=== PATIENT | female | born 1980 | race African-American/Black ===

== ENCOUNTER 2020-10-14 18:30 | Emergency (ER) | payer BC ==
[~2020-10-14] VITALS: Ht 154.9 cm; Wt 83.9 kg
--- NOTE | 2020-10-14 18:41 | NUR ---
at bedside for assessment
[2020-10-14 18:54] LABS: *BILIRUBIN,URIN NEGATIVE (NEGATIVE); *CLARITY,URINE CLEAR (CLEAR); *COLOR,URINE YELLOW (YELLOW); *KETONES,URINE 1+ (NEGATIVE); *UROBILINOGEN,URINE 0.2 E.U./dl (NORMAL); LEUKOCYTE ESTERASE ,URINE NEGATIVE (NEGATIVE); NITRITE, URINE NEGATIVE (NEGATIVE); PH,URINE 5.5 (5.0-8.0); UGLUCOSE NEGATIVE (NEGATIVE)
[2020-10-14 18:55] LABS: *BLOOD, URINE TRACE LYSED (NEGATIVE)
[2020-10-14 18:56] LABS: *URINE HCG, QUAL NEGATIVE (NEGATIVE)
--- NOTE | 2020-10-14 19:06 | NUR ---
Blood drawn and sent to lab at this time
[2020-10-14 19:09] LABS: BACTERIA,URINE FEW /HPF (NONE SEEN); SQUAMOUS EPITHELIAL CELL,UR FEW /HPF (NONE SEEN); WBC,URINE 0-3 /HPF (0-3)
[2020-10-14 19:13] LABS: BASOPHILS # (AUTO) 0.2 K/uL (0.0-8.0); BASOPHILS % (AUTO) 1.2 % (0.0-2.0); EOSINOPHILS # (AUTO) 0.4 K/uL (0.0-0.7); EOSINOPHILS % (AUTO) 3.2 % (0.0-7.0); HEMATOCRIT 43.6 % (31.2-41.9); HEMOGLOBIN 14.1 g/dL (10.9-14.3); LYMPHOCYTES # (AUTO) 3.8 K/uL (20.0-40.0); LYMPHOCYTES % (AUTO) 29.2 % (20.5-51.5); MEAN CORPUSCULAR HEMOGLOBIN 27.4 uug (24.7-32.8); MEAN CORPUSCULAR HGB CONC 32 g/dL (32.3-35.6); MEAN CORPUSCULAR VOLUME 84.8 fL (75.5-95.3); MONOCYTES # (AUTO) 0.7 K/uL (2.0-10.0); MONOCYTES % (AUTO) 5.7 % (0.0-11.0); NEUTROPHILS # (AUTO) 7.9 K/uL (1.8-8.9); NEUTROPHILS % (AUTO) 60.7 % (38.5-71.5); PLATELET COUNT (AUTO) 229 K/uL (179-408); RED BLOOD CELL COUNT(AUTO) 5.14 MIL/uL (3.63-4.92)
[2020-10-14 19:16] LABS: CREATININE 0.9 mg/dL (0.6-1.3); POTASSIUM 3.7 mmol/L (3.5-5.1)
[2020-10-14 19:22] LABS: BILIRUBIN,DIRECT 0.1 mg/dL (0.0-0.2); BILIRUBIN,TOTAL 0.4 mg/dL (0.2-1.0); TOTAL PROTEIN, SERUM 8.1 g/dL (6.4-8.2)
--- NOTE | 2020-10-14 19:23 | NUR ---
public health sanitarian technician arrived to take patient to CT scan.
--- NOTE | 2020-10-14 19:46 | NUR ---
Patient returned from CT scan.
--- NOTE | 2020-10-14 19:59 | NUR ---
MD Shaffer discussing results of tests with patient.
[2020-10-14 20:05] VITALS: BP 120/84
--- NOTE | 2020-10-14 20:05 | NUR ---
Patient discharged to home in stable condition. Written and verbal after care instructions given. Patient verbalizes understanding of instructions. Stressed follow up or return to ER for worsening s/s. Patient ambulates with steady gait, V/S stable, left with all personal belongings.
== END 2020-10-14 20:05 | disposition home or self-care (01) ==
LOC: ER 18:30
DX: R10.32 Left lower quadrant pain (principal); R10.31 Right lower quadrant pain; D72.829 Elevated white blood cell count, unspecified; K76.0 Fatty (change of) liver, not elsewhere classified
CPT/HCPCS: 36415; 83690; 84703; 85025; A4663